=== PATIENT | female | born 1980 | race Caucasian/White ===

== ENCOUNTER → 2020-06-04 08:51 | Outpatient (CLI) | payer BC, SELFPAY ==
[2020-06-04 18:31] LABS: SARS-CoV-2 RNA PCR Positive
== END ==
PROVIDERS: PCP Internal Medicine; Visit Provider Clinical Nurse Specialist
DX: U07.1 COVID-19 (principal)
CPT/HCPCS: C9803; U0003; U0005

== ENCOUNTER 2024-05-10 10:17 | Outpatient (CLI) | payer OTHER, SELFPAY ==
--- NOTE | ~2024-05-10 | US_ITS ---
Left axillary ultrasound Ordering provider: Rosa Maria Pinzon NP History: . R22.9 - Localized swelling, mass and lump, unspecified . Comparison: None. FINDINGS/impression: Small lymph nodes noted measuring 1 x 0.4 x 1.2 , 0.6 x 1.4 x 0.4 and 1.1 x 1.9 x 0.4 centimeter. Reviewed, dictated and finalized at location A. C SUPERVISOR
== END 2024-05-10 10:18 | disposition home or self-care (01) ==
LOC: GOSHIMG 10:18
PROVIDERS: PCP Internal Medicine; Visit Provider Nurse Practitioner
DX: R22.9 Localized swelling, mass and lump, unspecified (principal)
CPT/HCPCS: 76882